=== PATIENT | male | born 2000 | race Caucasian/White ===

== ENCOUNTER 2019-07-27 00:03 | Emergency (ER) | payer OTHER ==
[2019-07-27] MEDS ORDERED: ONDANSETRON 4 MG/2 ML VIAL IVP STA (01:01)
[2019-07-27] MEDS ORDERED: SODIUM CHLORIDE 0.9% 1,000 ML IV ONE (01:01)
--- NOTE | 2019-07-27 01:06 | ED Physician Documentation ---
History of Present Illness - Stated complaint Stated Complaint: N/V/D - Chief complaint Chief Complaint: Abd Pain - History obtained from History obtained from: Patient - History of Present Illness Timing: Last night - Additonal information Additional information: Patient comes emergency department complaining of vomiting and diarrhea that started approximately 24 hours ago. Patient states that he had done some drinking that evening and also had eaten a burrito. However, none of his friends got sick, and the patient states he really did not have very much to drink on that he has taken alcohol on other occasions without any problems. Patient denies any recent travel to anywhere. No fevers. No sick contacts. Patient states he is otherwise healthy. He states he does not really have any abdominal painjust nausea and a "unsettled" feeling in his bowels. Patient states his last episode of vomiting was 2 hours ago and he had diarrhea at the same time. No other complaints at this time. Review of Systems Ten Systems: 10 systems reviewed and negative Constitutional: reports: Reviewed and negative Eyes: reports: Reviewed and negative Ears: reports: Reviewed and negative Nose: reports: Reviewed and negative Throat: reports: Reviewed and negative Cardiac: reports: Reviewed and negative Respiratory: reports: Reviewed and negative GI: reports: Nausea, Vomiting, Diarrhea : reports: Reviewed and negative Skin: reports: Reviewed and negative Musculoskeletal: reports: Reviewed and negative Neurologic: reports: Reviewed and negative Psychiatric: reports: Reviewed and negative Endocrine: reports: Reviewed and negative Immunocompromised: reports: Reviewed and negative PD PAST MEDICAL HISTORY - Past Medical History Past Medical History: No - Past Surgical History Past Surgical History: Yes Ortho: Other - Present Medications Home Medications: Ambulatory Orders Medication Instructions Recorded Confirmed Ondansetron Odt [Zofran] 4 mg TL Q6H PRN #10 tablet 07/27/19 - Allergies Allergies/Adverse Reactions: Allergies Allergy/AdvReac Type Severity Reaction Status Date / Time Penicillins Allergy Hives Verified 07/27/19 00:15 - Social History Does the pt smoke?: No Smoking Status: Never smoker Does the pt drink ETOH?: Yes Does the pt have substance abuse?: No - Immunizations Immunizations are current?: Yes - POLST Patient has POLST: No PD ED PE NORMAL - Vitals Vital signs reviewed: Yes - General General: Alert and oriented X 3, No acute distress - HEENT HEENT: PERRL - Neck Neck: Supple, no meningeal sign - Cardiac Cardiac: RRR, No murmur - Respiratory Respiratory: Clear bilaterally - Abdomen Abdomen: Soft, Non tender, Non distended - Derm Derm: Warm and dry - Extremities Extremities: No deformity - Neuro Neuro: Alert and oriented X 3 - Psych Psych: Normal mood, Normal affect Results - Vitals Vitals: Vital Signs - 24 hr 07/27/19 07/27/19 07/27/19 00:13 02:02 02:30 Temperature 37.5 C 36.8 C Heart Rate 114 H 75 83 Respiratory 16 16 14 Rate Blood Pressure 118/71 135/67 H 134/67 H O2 Saturation 96 99 100 Oxygen O2 Source Room air PD MEDICAL DECISION MAKING - ED course Complexity details: reviewed old records, reviewed results, re-evaluated patient, considered differential, d/w patient ED course: Patient was treated symptomatically with IV fluids and Zofran, after which he was found to be feeling much better. I felt the patient was stable for discharge home. We have discussed home management of the symptoms, as well as the usual indications for return. We have discussed that this illness will be self- limited and that treatment is purely symptomatic. I have written a prescription for Zofran for the patient. Departure - Departure Disposition: 01 Home, Self Care Clinical Impression: Gastroenteritis Condition: Fair Instructions: ED Gastroenteritis Viral Prescriptions: Ondansetron Odt [Zofran] 4 mg TL Q6H PRN #10 tablet PRN Reason: Nausea / Vomiting Discharge Date/Time: 07/27/19 02:30
[2019-07-27 02:35] VITALS: BP 134/67
== END 2019-07-27 02:30 | disposition home or self-care (01) ==
LOC: ED 00:03
DX: K52.9 Noninfective gastroenteritis and colitis, unspecified (principal); Z88.0 Allergy status to penicillin
CPT/HCPCS: 36415; 96361; 96374; 99283